=== PATIENT | male | born 1955 ===

== ENCOUNTER 2021-08-08 13:40 | Inpatient (IN) | payer OTHER, MEDICAID ==
[~2021-08-08] VITALS: Ht 172.7 cm; Wt 99.6 kg
[2021-08-08] MEDS ORDERED: methylPREDNISolone SOD SUCC 125 MG/2 ML VL IV ONE (14:45)
[2021-08-08] MEDS ORDERED: IPRATROPIUM BROM 0.5 MG/2.5ML INH SOL NEB ONE ×2 (14:45→19:30)
[2021-08-08] MEDS ORDERED: ALBUTEROL SULF 2.5 MG/0.5ML(0.5%) NEB SOLN NEB ONE ×2 (14:45→19:30)
[2021-08-08 15:10] LABS: Basophils # (auto) 0 10 ^3/uL (0-0.2); Basophils % (auto) 0.2 % (0.0-2.0); Eosinophils # (auto) 0 10 ^3/uL (0-0.8); Hematocrit 36.5 % (41.0-53.0); Hemoglobin 12.1 g/dL (13.5-17.5); Lymphocytes # (auto) 0.5 10 ^3/uL (0.4-5.4); Lymphocytes % (auto) 3.1 % (10.0-50.0); Mean Corpuscular Hemoglobin 30.6 pg (28.0-32.0); Mean Corpuscular Hgb Conc. 33.3 g/dL (32.0-36.0); Mean Corpuscular Volume 91.7 fL (80.0-100.0); Monocytes # (auto) 1.4 10 ^3/uL (0-1.3); Monocytes % (auto) 8.7 % (0.0-12.0); Neutrophils # (auto) 14.7 10 ^3/uL (1.6-8.6); Red Blood Cells 3.97 10^6/uL (4.5-5.90); Red Cell Distribution Width 13.2 % (11.8-14.3); White Blood Cell 16.7 10^3/uL (4.4-10.8)
[2021-08-08] MEDS ORDERED: ASPirin 81 mg TAB PO ONE (15:15)
[2021-08-08 15:27] LABS: BUN/Creatinine Ratio 13.2; Calcium 9.1 mg/dL (8.5-10.1); Potassium 3.7 mmol/L (3.5-5.1)
[2021-08-08 15:30] LABS: Bilirubin, Total 1.2 mg/dL (0.2-1.0); Total Protein 6.6 g/dL (6.4-8.2)
[2021-08-08] MEDS ORDERED: cefTRIAXone 1GM/50ML D5W 50 ML IV ONE (16:45)
[2021-08-08] MEDS ORDERED: AZITHROMYCIN 500MG/ 250ML 250 ML IV ONE (16:45)
[2021-08-08] MEDS ORDERED: HYDROcodone-ACET 5/325MG TAB PO ONE (17:45)
[2021-08-08] MEDS ORDERED: NITROGLYCERIN 0.4 MG SL TAB SL PRN (22:15)
[2021-08-08] MEDS ORDERED: ONDANSETRON HCL 4 MG/2 ML VIAL IV PRN (22:15)
[2021-08-08] MEDS ORDERED: MORPHINE SULFATE INJECTION 2 MG/ML SYRG IV PRN (22:15)
[2021-08-08] MEDS ORDERED: TEMAZEPAM 15 MG CAP PO PRN (22:15)
[2021-08-08 22:36] VITALS: BP 96/45
[2021-08-08 22:38] LABS: Urine Bacteria NONE SEEN /hpf (None Seen); Urine Blood Negative /uL (Negative); Urine Mucus FEW (None Seen); Urine Specific Gravity 1.014 (1.001-1.035); Urine WBC 16 /hpf (0 - 3)
[2021-08-09] MEDS: ALBUTEROL SULF 2.5 MG/0.5ML(0.5%) NEB SOLN NEB SCH ×4 (02:37→19:19)
[2021-08-09] MEDS: IPRATROPIUM BROM 0.5 MG/2.5ML INH SOL NEB SCH ×4 (02:37→19:19)
[2021-08-09] MEDS: guaiFENesin-DM 100/10mg/5ml SYR PO PRN (03:33)
[2021-08-09] MEDS ORDERED: LITHIUM CARBONATE 300 MG TAB PO SCH (06:00)
[2021-08-09] MEDS: LEVOTHYROXINE SODIUM 112 MCG TAB PO SCH (06:33)
[2021-08-09] MEDS: LEVOTHYROXINE SODIUM 25 MCG TAB PO SCH (06:34)
[2021-08-09] MEDS: ACETAMINOPHEN 325 MG TAB PO PRN (06:34)
[2021-08-09 07:43] LABS: Hematocrit 36.3 % (41.0-53.0); Hemoglobin 11.8 g/dL (13.5-17.5); Mean Corpuscular Hemoglobin 30.3 pg (28.0-32.0); Mean Corpuscular Hgb Conc. 32.6 g/dL (32.0-36.0); Mean Corpuscular Volume 92.9 fL (80.0-100.0); Red Cell Distribution Width 13.4 % (11.8-14.3); White Blood Cell 15.7 10^3/uL (4.4-10.8)
[2021-08-09 07:49] LABS: Basophils % (manual) 0 (0.0-2.0); Blast Cells 0; Eosinophils % (manual) 0 (0-7); Metamyelocytes % 0; Myelocytes % 0; Promyelocytes % 0; Reactive Lymphocytes 0
[2021-08-09 07:58] LABS: Albumin 2.7 g/dL (3.4-5.0); Calcium 9.4 mg/dL (8.5-10.1)
[2021-08-09 08:02] LABS: BUN/Creatinine Ratio 17.8; Bilirubin, Total 0.5 mg/dL (0.2-1.0); Total Protein 6.8 g/dL (6.4-8.2)
[2021-08-09 08:30] LABS: Band Neutrophils % (manual) 22; Lymphocytes % (manual) 4 (10.0-50.0); Monocytes % (manual) 1 (0-12)
[2021-08-09] MEDS: cefTRIAXone 1GM/50ML D5W 50 ML IV SCH (09:13)
[2021-08-09] MEDS: DexAMETHasone SOD PHOS 10MG/1ML VIAL INJ IV SCH (10:47)
[2021-08-09] MEDS: AZITHROMYCIN 500MG/ 250ML 250 ML IV SCH (10:47)
[2021-08-09] MEDS: lamoTRIgine 100 MG TAB PO SCH ×2 (10:48→21:45)
[2021-08-09] MEDS: PANTOPRAZOLE 40 MG TAB PO SCH (10:50)
[2021-08-09] MEDS: ENOXAPARIN SOD 40 MG/0.4 ML SYRINGE SC SCH (10:50)
[2021-08-09] MEDS: FUROSEMIDE 20 MG TAB PO SCH (10:50)
[2021-08-09 13:40] VITALS: BP 98/66
[2021-08-09] MEDS ORDERED: LAMO100T44 PO (16:44)
[2021-08-09] MEDS ORDERED: ALPR0.5T7 PO (16:44)
[2021-08-09] MEDS ORDERED: TAMS0.4C36 PO (16:44)
[2021-08-09] MEDS ORDERED: LITH300C3 PO (16:44)
[2021-08-09] MEDS ORDERED: FURO20TA3 PO (16:44)
[2021-08-09] MEDS ORDERED: POTA10TA51 PO (16:44)
[2021-08-09] MEDS ORDERED: LOSA-39 PO (16:44)
[2021-08-09] MEDS ORDERED: LEVO125T7 PO (16:44)
[2021-08-09] MEDS ORDERED: DILT60TA PO (16:45)
[2021-08-09 16:51] VITALS: BP 108/68
[2021-08-09] MEDS: LITHIUM CARBONATE 300 MG TAB PO SCH (21:45)
[2021-08-09 22:25] VITALS: BP 109/77
[2021-08-10 05:25] VITALS: BP 134/82
[2021-08-10] MEDS: LEVOTHYROXINE SODIUM 25 MCG TAB PO SCH (06:53)
[2021-08-10] MEDS: LITHIUM CARBONATE 300 MG TAB PO SCH ×2 (06:54→21:22)
[2021-08-10] MEDS: LEVOTHYROXINE SODIUM 112 MCG TAB PO SCH (06:54)
[2021-08-10] MEDS: ALBUTEROL SULF 2.5 MG/0.5ML(0.5%) NEB SOLN NEB SCH ×3 (07:08→18:46)
[2021-08-10] MEDS: IPRATROPIUM BROM 0.5 MG/2.5ML INH SOL NEB SCH ×3 (07:08→18:46)
[2021-08-10 09:00] VITALS: BP 123/79
[2021-08-10] MEDS: cefTRIAXone 1GM/50ML D5W 50 ML IV SCH (09:28)
[2021-08-10] MEDS: DexAMETHasone SOD PHOS 10MG/1ML VIAL INJ IV SCH (09:30)
[2021-08-10] MEDS: lamoTRIgine 100 MG TAB PO SCH ×2 (09:30→21:22)
[2021-08-10] MEDS: FUROSEMIDE 20 MG TAB PO SCH (09:31)
[2021-08-10] MEDS: PANTOPRAZOLE 40 MG TAB PO SCH (09:31)
[2021-08-10] MEDS: ENOXAPARIN SOD 40 MG/0.4 ML SYRINGE SC SCH (09:32)
[2021-08-10] MEDS: AZITHROMYCIN 500MG/ 250ML 250 ML IV SCH (11:23)
[2021-08-10 13:00] VITALS: BP 121/70
[2021-08-10 17:00] VITALS: BP 118/73
[2021-08-10] MEDS: guaiFENesin-DM 100/10mg/5ml SYR PO PRN (21:28)
[2021-08-10] MEDS: ACETAMINOPHEN 325 MG TAB PO PRN (21:32)
[2021-08-10 22:00] VITALS: BP 122/75
[2021-08-11 05:00] VITALS: BP 127/66
[2021-08-11] MEDS: IPRATROPIUM BROM 0.5 MG/2.5ML INH SOL NEB SCH (06:21)
[2021-08-11] MEDS: ALBUTEROL SULF 2.5 MG/0.5ML(0.5%) NEB SOLN NEB SCH (06:22)
[2021-08-11] MEDS: LEVOTHYROXINE SODIUM 112 MCG TAB PO SCH (06:31)
[2021-08-11] MEDS: LEVOTHYROXINE SODIUM 25 MCG TAB PO SCH (06:31)
[2021-08-11] MEDS: LITHIUM CARBONATE 300 MG TAB PO SCH (06:32)
[2021-08-11 07:15] LABS: Hematocrit 39.4 % (41.0-53.0); Mean Corpuscular Hemoglobin 30.3 pg (28.0-32.0); Mean Corpuscular Hgb Conc. 33.1 g/dL (32.0-36.0); Mean Corpuscular Volume 91.7 fL (80.0-100.0); Red Cell Distribution Width 13.3 % (11.8-14.3); White Blood Cell 16.9 10^3/uL (4.4-10.8)
[2021-08-11 07:40] LABS: Magnesium 2.9 mg/dL (1.6-2.6); Potassium 4.1 mmol/L (3.5-5.1)
[2021-08-11 07:43] LABS: BUN/Creatinine Ratio 32.5
[2021-08-11 07:56] LABS: Basophils % (manual) 0 (0.0-2.0); Blast Cells 0; Eosinophils % (manual) 0 (0-7); Metamyelocytes % 0; Myelocytes % 0; Promyelocytes % 0; Reactive Lymphocytes 0
[2021-08-11 08:20] VITALS: BP 144/87
[2021-08-11 08:31] LABS: Band Neutrophils % (manual) 3; Lymphocytes % (manual) 14 (10.0-50.0); Monocytes % (manual) 8 (0-12)
[2021-08-11 09:29] VITALS: BP 144/87
[2021-08-11] MEDS: cefTRIAXone 1GM/50ML D5W 50 ML IV SCH (09:36)
[2021-08-11] MEDS: lamoTRIgine 100 MG TAB PO SCH (09:36)
[2021-08-11] MEDS: DexAMETHasone SOD PHOS 10MG/1ML VIAL INJ IV SCH (09:36)
[2021-08-11] MEDS: FUROSEMIDE 20 MG TAB PO SCH (09:37)
[2021-08-11] MEDS: PANTOPRAZOLE 40 MG TAB PO SCH (09:37)
[2021-08-11] MEDS: ENOXAPARIN SOD 40 MG/0.4 ML SYRINGE SC SCH (09:37)
[2021-08-11] MEDS: AZITHROMYCIN 500MG/ 250ML 250 ML IV SCH (09:38)
== END 2021-08-11 12:22 | disposition home or self-care (01) | DRG 193 ==
LOC: EDBD 13:40 → ER 13:40 → TELE 22:03 → TELE-WESTW 08-09 13:41
PROVIDERS: ADMIT Nurse Practitioner; ATTEND Internal Medicine Geriatric Medicine
DX: J18.9 Pneumonia, unspecified organism (principal); J96.01 Acute respiratory failure with hypoxia; J44.0 Chronic obstructive pulmonary disease with (acute) lower respiratory infection; E44.0 Moderate protein-calorie malnutrition; N17.9 Acute kidney failure, unspecified; N39.0 Urinary tract infection, site not specified; J44.1 Chronic obstructive pulmonary disease with (acute) exacerbation; Z20.822 Contact with and (suspected) exposure to COVID-19; D72.829 Elevated white blood cell count, unspecified; F31.9 Bipolar disorder, unspecified; E03.9 Hypothyroidism, unspecified; E78.5 Hyperlipidemia, unspecified; I10 Essential (primary) hypertension; Z68.33 Body mass index [BMI] 33.0-33.9, adult
CPT/HCPCS: 36415; 71045; 74176; 80048; 80053; 81001; 82728; 83605; 83690; 83735; 83880; 84443; 84484; 85007; 85025; 85027; 85379; 87426; 93005; 94640; 96365; 96366; 96368; 96372; 96375; G0378; J0696; J1100